=== PATIENT | male | born 1995 | race Caucasian/White ===

== ENCOUNTER 2019-05-01 03:54 | Emergency (ER) | payer OTHER ==
--- NOTE | 2019-05-01 03:58 | ED Physician Documentation ---
History of Present Illness - Stated complaint Stated Complaint: DIFFICULTY BREATHING - History obtained from History obtained from: Patient (Patient is a 23-year-old male with a history of asthma who ran out of inhaler noted he started having some mild wheezing tonight after smoking marijuana so he presents to the ER.He denies any fevers, headache, neck pain.Denies any rashes denies chest pain denies any history of pulmonary embolism or DVT.) Review of Systems Constitutional: reports: Reviewed and negative Eyes: reports: Reviewed and negative Ears: reports: Reviewed and negative Nose: reports: Reviewed and negative Throat: reports: Reviewed and negative Cardiac: reports: Reviewed and negative Respiratory: reports: Wheezing GI: reports: Reviewed and negative : reports: Reviewed and negative Skin: reports: Reviewed and negative Musculoskeletal: reports: Reviewed and negative Neurologic: reports: Reviewed and negative Psychiatric: reports: Reviewed and negative Endocrine: reports: Reviewed and negative Immunocompromised: reports: Reviewed and negative PD PAST MEDICAL HISTORY - Present Medications Home Medications: Ambulatory Orders Medication Instructions Recorded Confirmed Albuterol Sulfate [Albuterol 18 gm IH Q6HR PRN #1 hfa.aer.ad 05/01/19 Sulfate Hfa] predniSONE [Prednisone] 50 mg PO DAILY 5 Days #5 tablet 05/01/19 - Allergies Allergies/Adverse Reactions: Allergies Allergy/AdvReac Type Severity Reaction Status Date / Time No Known Drug Allergies Allergy Verified 05/01/19 04:02 PD ED PE NORMAL - Vitals Vital signs reviewed: Yes - General General: Alert and oriented X 3, No acute distress, Well developed/nourished - HEENT HEENT: Atraumatic, PERRL, Moist mucous membranes, Pharynx benign - Neck Neck: Supple, no meningeal sign, No JVD - Cardiac Cardiac: RRR, No murmur, Strong equal pulses - Respiratory Respiratory: No respiratory distress, Other (Mild diffuse intermittent wheezing.No use of accessory muscles, no respiratory distress.) - Abdomen Abdomen: Normal bowel sounds, Soft, Non tender, Non distended, No organomegaly - Derm Derm: Warm and dry - Extremities Extremities: No deformity - Neuro Neuro: Alert and oriented X 3 - Psych Psych: Normal mood, Normal affect Results - Vitals Vitals: Vital Signs - 24 hr 05/01/19 05/01/19 03:55 04:28 Temperature 36.3 C L Heart Rate 66 50 L Respiratory 16 18 Rate Blood Pressure 109/66 O2 Saturation 95 Oxygen O2 Source Room air PD MEDICAL DECISION MAKING - ED course Complexity details: re-evaluated patient (05:04, Improved after breathing treatment updated on results of chest x-ray will discharge home with a prescription for steroids and an inhaler.), considered differential (Reactive airway disease, pneumonia, bronchitis, pneumothorax, PERC 0) Departure - Departure Disposition: 01 Home, Self Care Clinical Impression: Asthma Qualifiers: Asthma severity: unspecified severity Asthma persistence: unspecified Asthma complication type: unspecified Qualified Code(s): J45.909 - Unspecified asthma, uncomplicated Condition: Stable Instructions: ALBUTEROL Oral Inhaler, ED Reactive Airway Disease Follow-Up: your, doctor [Other] - Tomorrow Prescriptions: Albuterol Sulfate [Albuterol Sulfate Hfa] 18 gm IH Q6HR PRN #1 hfa.[email or web address] PRN Reason: Wheezing predniSONE [Prednisone] 50 mg PO DAILY 5 Days #5 tablet
[2019-05-01] MEDS ORDERED: IPRATROPIUM/ALBUTEROL 3 ML NEB INH STA (04:13)
[2019-05-01] MEDS ORDERED: predniSONE 20 MG TABLET PO STA (04:13)
--- NOTE | 2019-05-01 05:01 | XRAY Report ---
Reason: sob Procedure Date: 05/01/2019 Accession Number: [id number] / [id number] Procedure: XR - Chest 2 View X-Ray CPT Code: 41817 Final Report FULL RESULT: EXAM: CHEST RADIOGRAPHY EXAM DATE: 05/01/2019 04:50 AM CLINICAL HISTORY: Sob. COMPARISON: None. TECHNIQUE: 2 views. FINDINGS: Lungs/Pleura: Central peribronchial and interstitial thickening. No lobar opacity, pleural effusion, or pneumothorax. Mediastinum: Normal heart and mediastinum. Other: None. IMPRESSION: Pulmonary findings which may reflect bronchiolitis from infection or inflammation. No lobar pneumonia. RADIA
[2019-05-01 05:46] VITALS: BP 116/78
== END 2019-05-01 05:44 | disposition home or self-care (01) ==
LOC: ED 03:54
DX: J45.909 Unspecified asthma, uncomplicated (principal)
CPT/HCPCS: 71046; 94640; 99283; 99284; J7512

== ENCOUNTER 2019-05-15 11:04 | Emergency (ER) | payer OTHER ==
[2019-05-15 11:17] VITALS: BP 124/84
--- NOTE | 2019-05-15 11:20 | ED Physician Documentation ---
PD HPI URI - Stated complaint Stated Complaint: WELL CHECK - Chief complaint Chief Complaint: General - History obtained from History obtained from: Patient - History of Present Illness Timing - onset: Other (He states he has been feeling well. He has been home off work for the last 6 days without any illness. 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 However his employer states he needed a note saying he is well in order to go back to work.) Associated symptoms: No: Fever, Chills, Sore throat, Dry cough, NVD Contributing factors: No: Sick contact, Travel, Immunocompromised Recently seen: Not recently seen Review of Systems Constitutional: denies: Fever Nose: denies: Rhinorrhea / runny nose, Congestion Throat: denies: Sore throat Respiratory: denies: Cough GI: denies: Vomiting, Diarrhea Neurologic: denies: Generalized weakness PD PAST MEDICAL HISTORY - Past Medical History Past Medical History: Yes Respiratory: Asthma - Past Surgical History Past Surgical History: No - Present Medications Home Medications: Ambulatory Orders Medication Instructions Recorded Confirmed Albuterol Sulfate [Albuterol 18 gm IH Q6HR PRN #1 hfa.[email or web address] 05/01/19 Sulfate Hfa] predniSONE [Prednisone] 50 mg PO DAILY 5 Days #5 tablet 05/01/19 - Allergies Allergies/Adverse Reactions: Allergies Allergy/AdvReac Type Severity Reaction Status Date / Time No Known Drug Allergies Allergy Verified 05/15/19 11:17 - Social History Does the pt smoke?: No Smoking Status: Never smoker Does the pt drink ETOH?: No Does the pt have substance abuse?: No - Immunizations Immunizations are current?: Yes PD ED PE NORMAL - Vitals Vital signs reviewed: Yes - General General: Alert and oriented X 3, No acute distress, Well developed/nourished - HEENT HEENT: Moist mucous membranes, Pharynx benign - Neck Neck: Supple, no meningeal sign, No adenopathy - Cardiac Cardiac: RRR, No murmur - Respiratory Respiratory: Clear bilaterally - Derm Derm: Normal color, Warm and dry - Neuro Neuro: Alert and oriented X 3, No motor deficit, Normal speech Results - Vitals Vitals: Vital Signs - 24 hr 05/15/19 11:14 Temperature 36.0 C L Heart Rate 99 Respiratory 16 Rate Blood Pressure 124/84 H O2 Saturation 99 Oxygen O2 Source Room air PD MEDICAL DECISION MAKING - ED course Complexity details: considered differential (Patient is without illness. I gave him a copy of the CDC handout to provide to his employer stating employee your should not require work notes for return to work according to the CDC. The patient appears well at this point but I certainly am not able to vouch that he will not be ill etc.), d/w patient Departure - Departure Disposition: Home, Self Care Clinical Impression: Well adult health check Condition: Stable Record reviewed to determine appropriate education?: Yes Comments: The CDC website as listed below says that employer should not require workers to get notes for return to work but should follow the guidelines specified within the website. The patient states he is feeling well and has no clinical indications for respiratory infection at the moment. Refer to this website for the CDC guidelines stating business practices for redu cing spread of infection and in particular not requiring employees to have work notes: https://www.cdc.gov/coronavirus/2019-ncov/community/nwldlliw-rckgqjjl-mzhfbyaw.h tml
== END 2019-05-15 11:47 | disposition home or self-care (01) ==
LOC: ED 11:04
DX: Z02.89 Encounter for other administrative examinations (principal)
CPT/HCPCS: 99281

== ENCOUNTER 2019-07-10 21:53 | Emergency (ER) | payer OTHER ==
[2019-07-10 22:07] VITALS: BP 115/65
[2019-07-10] MEDS ORDERED: IPRATROPIUM/ALBUTEROL 3 ML NEB INH STA (22:56)
[2019-07-10] MEDS ORDERED: predniSONE 20 MG TABLET PO STA ×2 (22:56→23:27)
--- NOTE | 2019-07-10 23:00 | ED Physician Documentation ---
PD HPI DYSPNEA - Stated complaint Stated Complaint: SOA - Chief complaint Chief Complaint: Resp - History obtained from History obtained from: Patient - History of Present Illness Timing - onset: Enter time (15:00), Today Timing - onset during: Light activity Timing - details: Gradual onset Pain level max: 0 Pain level now: 0 Worsened by: Exertion Associated symptoms: Wheezing. No: Fever, Cough, Hemoptysis, Chest pain / discomfort, Bilateral edema, Unilateral edema Recently seen: Emergency Dept (T+R 2 months ago from this ED for similar symptoms, had resolution with MDI and prednisone. Has been seen in outpatient setting and had MDI represcribed) Review of Systems Constitutional: denies: Fever, Chills, Sweats Throat: denies: Sore throat Cardiac: reports: Reviewed and negative Respiratory: reports: Dyspnea, Wheezing. denies: Cough, Hemoptysis PD PAST MEDICAL HISTORY - Past Medical History Respiratory: Asthma - Past Surgical History Past Surgical History: No - Present Medications Home Medications: Ambulatory Orders Medication Instructions Recorded Confirmed Albuterol Sulfate [Albuterol 18 gm IH Q6HR PRN #1 hfa.[email or web address] 05/01/19 Sulfate Hfa] predniSONE [Prednisone] 50 mg PO DAILY 5 Days #5 tablet 05/01/19 predniSONE [Prednisone] 40 mg PO DAILY #8 tablet 07/10/19 - Allergies Allergies/Adverse Reactions: Allergies Allergy/AdvReac Type Severity Reaction Status Date / Time No Known Drug Allergies Allergy Verified 07/10/19 22:02 - Social History Does the pt smoke?: No Smoking Status: Never smoker Does the pt drink ETOH?: No Does the pt have substance abuse?: No - Immunizations Immunizations are current?: Yes PD ED PE NORMAL - Vitals Vital signs reviewed: Yes - General General: Alert and oriented X 3, No acute distress, Well developed/nourished - Neck Neck: Supple, no meningeal sign - Cardiac Cardiac: RRR, No murmur - Respiratory Respiratory: No respiratory distress, Clear bilaterally Results - Vitals Vitals: Vital Signs - 24 hr 07/10/19 07/10/19 22:02 23:05 Temperature 36.5 C Heart Rate 79 67 Respiratory 16 16 Rate Blood Pressure 115/65 O2 Saturation 94 Oxygen O2 Source Room air PD MEDICAL DECISION MAKING - ED course Complexity details: reviewed old records, considered differential, d/w patient ED course: patient already was finishing up duoneb by the time of my evaluation; he reports significant improvement with this and is comfortable with discharge home Departure - Departure Disposition: 01 Home, Self Care Clinical Impression: Dyspnea Condition: Good Instructions: ED Dyspnea Shortness of Breath Prescriptions: predniSONE [Prednisone] 40 mg PO DAILY #8 tablet Discharge Date/Time: 07/10/19 23:41
== END 2019-07-10 23:41 | disposition home or self-care (01) ==
LOC: ED 21:53
DX: R06.00 Dyspnea, unspecified (principal); J45.909 Unspecified asthma, uncomplicated
CPT/HCPCS: 94640; 99283; J7512

== ENCOUNTER 2020-08-30 07:00 | Outpatient (CLI) | payer OTHER ==
--- NOTE | 2020-08-31 14:18 | XRAY Report ---
PROCEDURE: Cervical Spine 2 View INDICATIONS: NECK PAIN, ACUTE TECHNIQUE: 2 views of the cervical spine were acquired. COMPARISON: None. FINDINGS: Bones: No fractures or subluxation to the C7-T1 level. No suspicious bony lesions. Soft tissues: No prevertebral soft tissue swelling. IMPRESSION: 1. No fracture or subluxation. Reviewed by: Blu Arora MD on 08/31/2020 2:16 PM PDT Approved by: Blu Arora MD on 08/31/2020 2:16 PM PDT Station ID: [id number]
== END 2020-08-30 23:59 | disposition home or self-care (01) ==
LOC: DI.N 07:00
PROVIDERS: ATTEND Family Medicine
DX: M54.2 Cervicalgia (principal)

== ENCOUNTER 2021-03-03 02:52 | Emergency (ER) | payer SELFPAY ==
[2021-03-03] MEDS ORDERED: IPRATROPIUM/ALBUTEROL 3 ML NEB INH STA (04:16)
--- NOTE | 2021-03-03 04:16 | ED Physician Documentation ---
PD HPI DYSPNEA - Stated complaint Stated Complaint: SOA - Chief complaint Chief Complaint: Resp - History obtained from History obtained from: Patient - History of Present Illness Timing - onset: Yesterday Timing - details: Gradual onset, Waxing and waning Pain level now: 0 Worsened by: Exertion Associated symptoms: Wheezing. No: Fever, Bilateral edema, Unilateral edema Similar symptoms before: Diagnosis (asthma has been suspected/provisional diagnosis) - Additional information Additional information: c/o dyspnea, wheezing, chest/breathing constriction since yesterday. He has had similar episodes in the past, has been told possible asthma but has not been specifically diagnosed (his description is that of being told on a previous ED visit about possible asthma). He has had good relief in the past with albuterol MDI but he does not have it with him. He is not COVID vaccinated. Denies fever. He has had minimal, nonproductive cough. Review of Systems Constitutional: reports: Reviewed and negative Cardiac: denies: Chest pain / pressure Respiratory: reports: Dyspnea, Cough (minimal, nonproductive), Wheezing PD PAST MEDICAL HISTORY - Past Medical History Respiratory: Asthma - Past Surgical History Past Surgical History: No - Present Medications Home Medications: Ambulatory Orders Medication Instructions Recorded Confirmed Albuterol Sulfate [Albuterol 18 gm IH Q6HR PRN #1 [email or web address] 05/01/19 Sulfate Hfa] predniSONE [Prednisone] 50 mg PO DAILY 5 Days #5 tablet 05/01/19 predniSONE [Prednisone] 40 mg PO DAILY #8 tablet 07/10/19 Albuterol Sulf [Ventolin Hfa 1 - 2 puffs INH Q4HR PRN #1 inhaler 03/03/21 Inhaler] predniSONE [Deltasone] 40 mg PO DAILY 4 Days #8 tablet 03/03/21 - Allergies Allergies/Adverse Reactions: Allergies Allergy/AdvReac Type Severity Reaction Status Date / Time No Known Drug Allergies Allergy Verified 07/10/19 22:02 - Social History Does the pt smoke?: No Smoking Status: Never smoker Does the pt drink ETOH?: No Does the pt have substance abuse?: No - Immunizations Immunizations are current?: Yes PD ED PE NORMAL - Vitals Vital signs reviewed: Yes - General General: Alert and oriented X 3, No acute distress, Well developed/nourished - Cardiac Cardiac: RRR, No murmur - Respiratory Respiratory: No respiratory distress PD ED PE EXPANDED - Respiratory Respiratory: Wheezing (diffuse expiratory wheezing with decreased breath sounds) Results - Vitals Vitals: Oxygen O2 Source Room air PD MEDICAL DECISION MAKING - ED course Complexity details: reviewed old records, re-evaluated patient, considered differential, d/w patient ED course: HPI s/o asthma exacerbation. lungs are diminished with diffuse expiratory wheezing. He is given duoneb and PO prednisone. On reexamination, he is in NAD and reports significant improvement. On reexam, he has good air movement and minimal residual end-expiratory wheezing bilaterally. Rx for albuterol MDI and prednisone transmitted to his pharmacy of choice Departure - Departure Disposition: 01 Home, Self Care Clinical Impression: Dyspnea Condition: Good Instructions: ED Reactive Airway Disease Prescriptions: Albuterol Sulf [Ventolin Hfa Inhaler] 1 - 2 puffs INH Q4HR PRN #1 inhaler PRN Reason: Shortness Of Air/Wheezing predniSONE [Deltasone] 40 mg PO DAILY 4 Days #8 tablet Comments: Prescriptions for an albuterol inhaler and prednisone have been electronically submitted to [facility] pharmacy in [place] Discharge Date/Time: 03/03/21 06:00
[2021-03-03] MEDS ORDERED: predniSONE 20 MG TABLET PO STA (04:19)
[2021-03-03 05:58] VITALS: BP 149/80
== END 2021-03-03 06:00 | disposition home or self-care (01) ==
LOC: ED 02:52
DX: R06.00 Dyspnea, unspecified (principal)
CPT/HCPCS: 94640; 94664; 99283; J7512

== ENCOUNTER 2021-11-04 10:10 | Emergency (ER) | payer OTHER ==
[2021-11-04 10:23] VITALS: BP 138/92
--- NOTE | 2021-11-04 11:48 | ED Physician Documentation ---
History of Present Illness - Stated complaint Stated Complaint: BACK PX - Chief complaint Chief Complaint: Back Pain - Additonal information Additional information: Patient is 26-year-old male presenting to the emergency department with chief complaint of back pain. Reports right-sided back pain radiating down his right leg x3 weeks. States that pain began acutely 3 weeks ago while doing some heavy lifting at work. Denies episodes of similar pain in the past. Denies any fever, history IVDA, diabetes, renal disease, saddle paresthesias, changes in bowel or bladder habit or lower extremity weakness. Reports has been using Motrin at home with minimal relief. Does state that yesterday a friend gave him a half of Robaxin which did significantly help his pain and allow him to sleep. Does not currently have a primary care doctor with whom he follows. Review of Systems Ten Systems: 10 systems reviewed and negative Constitutional: denies: Fever Eyes: denies: Loss of vision Ears: denies: Loss of hearing Nose: denies: Rhinorrhea / runny nose Throat: denies: Dental pain / toothache Cardiac: denies: Chest pain / pressure Respiratory: denies: Dyspnea GI: denies: Abdominal Pain Musculoskeletal: reports: Back pain PD PAST MEDICAL HISTORY - Past Medical History Respiratory: Asthma - Past Surgical History Past Surgical History: No - Present Medications Home Medications: Ambulatory Orders Medication Instructions Recorded Confirmed Albuterol Sulfate [Albuterol 18 gm IH Q6HR PRN #1 hfa.aer.ad 05/01/19 Sulfate Hfa] predniSONE [Prednisone] 50 mg PO DAILY 5 Days #5 tablet 05/01/19 predniSONE [Prednisone] 40 mg PO DAILY #8 tablet 07/10/19 Albuterol Sulf [Ventolin Hfa 1 - 2 puffs INH Q4HR PRN #1 inhaler 03/03/21 Inhaler] predniSONE [Deltasone] 40 mg PO DAILY 4 Days #8 tablet 03/03/21 Acetaminophen [Pain Relief] 650 mg PO Q8HR #30 tab 11/04/21 Ibuprofen [Motrin] 1 tablet PO Q8H PRN #30 tablet 11/04/21 Lidocaine Patch 5% [Lidoderm Patch] 1 each TOP DAILY #20 patch 11/04/21 methocarbamoL [Robaxin] 500 mg PO Q6H #20 tablet 11/04/21 oxyCODONE [Roxicodone] 5 mg PO ONCE #10 tablet 11/04/21 - Allergies Allergies/Adverse Reactions: Allergies Allergy/AdvReac Type Severity Reaction Status Date / Time No Known Drug Allergies Allergy Verified 11/04/21 10:23 - Social History Does the pt smoke?: No Smoking Status: Never smoker Does the pt drink ETOH?: No Does the pt have substance abuse?: No - Immunizations Immunizations are current?: Yes - POLST Patient has POLST: No PD ED PE NORMAL - General General: Alert and oriented X 3, No acute distress, Well developed/nourished - HEENT HEENT: Atraumatic - Respiratory Respiratory: No respiratory distress - Back Back: No CVA TTP, No spinal TTP, Other (Right low paraspinal muscle tenderness to palpation.) Results - Vitals Vitals: Vital Signs - 24 hr 11/04/21 10:20 Temperature 36.3 C L Heart Rate 80 Respiratory 16 Rate Blood Pressure 138/92 H O2 Saturation 97 Oxygen O2 Source Room air PD MEDICAL DECISION MAKING - ED course Complexity details: d/w patient ED course: Patient is otherwise healthy 26-year-old male presenting to the emergency department with 3-week history of right low back pain with symptoms consistent with sciatica on the right. Afebrile, hemodynamically stable. No red flags elicited in history. Normal reflexes, normal sensation in the right lower extremity. No tenderness to palpation of the spine itself but some right low paraspinal muscle tenderness to palpation. Discussed nature of back pain with patient at length. I discussed modalities for pain management at home including the use of regular alternating acetaminophen, ibuprofen, Lidoderm patches. Additionally discussed adjuvant medications including Robaxin and Roxicodone for use as needed. Did discuss in detail the importance of follow-up with primary care. Additionally we discussed red flags would be indicative of spinal cord compression or infection which Should elicit prompt return to the emergency department. Patient verbalized understanding of these things. Will discharge at this time with prescriptionsSymptomatic management as well as encouragement for light activity at home and follow-up with primary care. Otherwise clear return precautions given prior to discharge. Departure - Departure Disposition: 01 Home, Self Care Clinical Impression: Back pain, Sciatica Instructions: NARCOTIC, Oral, IBUPROFEN (Adult), ED Back Care Tips, ED Exercises Lumbar Muscles, ED Sciatica Follow-Up: Coy Drummond MD [Physician No Access] - Prescriptions: Acetaminophen [Pain Relief] 650 mg PO Q8HR #30 tab Lidocaine Patch 5% [Lidoderm Patch] 1 each TOP DAILY #20 patch Ibuprofen [Motrin] 1 tablet PO Q8H PRN #30 tablet PRN Reason: PAIN &/OR FEVER methocarbamoL [Robaxin] 500 mg PO Q6H #20 tablet oxyCODONE [Roxicodone] 5 mg PO ONCE #10 tablet
== END 2021-11-04 11:59 | disposition home or self-care (01) ==
LOC: ED 10:10
DX: M54.40 Lumbago with sciatica, unspecified side (principal)
CPT/HCPCS: 99283; 99284

== ENCOUNTER 2023-01-05 10:52 | Emergency (ER) | payer SELFPAY ==
[2023-01-05] MEDS ORDERED: IPRATROPIUM/ALBUTEROL 3 ML NEB INH STA (10:59)
[2023-01-05 11:13] VITALS: BP 123/90; O2SAT 94
--- NOTE | 2023-01-05 11:27 | XRAY Report ---
PROCEDURE: Chest 1 View X-Ray INDICATIONS: SOA TECHNIQUE: One view of the chest was acquired. COMPARISON: None. FINDINGS: Surgical changes and devices: None. Lungs and pleura: No pleural effusions or pneumothorax. Lungs are clear. Mediastinum: Mediastinal contours appear normal. Heart size is normal. Bones and chest wall: No suspicious bony lesions. Overlying soft tissues appear unremarkable. IMPRESSION: No acute cardiopulmonary process. Reviewed by: Rolando Delgado on 01/05/2023 11:26 AM [facility] Approved by: Rolando Delgado on 01/05/2023 11:26 AM [facility] Station ID: [id number]
--- NOTE | 2023-01-05 11:38 | ED Physician Documentation ---
PD HPI URI - Stated complaint Stated Complaint: SOA - Chief complaint Chief Complaint: Resp - History obtained from History obtained from: Patient - History of Present Illness Timing - onset: How many weeks ago (3) Timing duration: Weeks (3) Timing details: Gradual onset, Still present Associated symptoms: Nasal congestion, Productive cough, Dyspnea Improves by: Rest, MDI/nebulizer Worsened by: Activity Similar symptoms before: Diagnosis (asthma) Recently seen: Not recently seen - Additional information Additional information: Adalid Kemp is a 27-year-old male with a history of persistent asthma who has had a worsening of his asthma over the last 3 weeks. He is developed a productive cough and he does not have an inhaler. He last remembers being on a course of steroid over a year ago. His best status has been to be using his inhaler about twice per day. He does not have periods of time where he does not use his inhaler at all. He is out of his inhaler. He has not sought treatment for his asthma specifically. He does not have a primary care doctor. Review of Systems Constitutional: denies: Fever, Chills Eyes: denies: Decreased vision Ears: reports: Loss of hearing. denies: Ear pain Nose: reports: Rhinorrhea / runny nose, Congestion Throat: denies: Sore throat Cardiac: denies: Chest pain / pressure, Palpitations Respiratory: reports: Dyspnea, Cough, Wheezing GI: denies: Abdominal Pain, Nausea, Vomiting, Constipation, Diarrhea : denies: Dysuria, Frequency Skin: denies: Rash Musculoskeletal: denies: Neck pain, Back pain, Extremity pain Neurologic: denies: Generalized weakness, Focal weakness, Numbness PD PAST MEDICAL HISTORY - Past Medical History Past Medical History: Yes Respiratory: Asthma - Past Surgical History Past Surgical History: No - Present Medications Home Medications: Ambulatory Orders Medication Instructions Recorded Confirmed Albuterol Sulfate [Albuterol 18 gm IH Q6HR PRN #1 hfa.aer.ad 05/01/19 Sulfate Hfa] predniSONE [Prednisone] 50 mg PO DAILY 5 Days #5 tablet 05/01/19 predniSONE [Prednisone] 40 mg PO DAILY #8 tablet 07/10/19 Albuterol Sulf [Ventolin Hfa 1 - 2 puffs INH Q4HR PRN #1 inhaler 03/03/21 Inhaler] predniSONE [Deltasone] 40 mg PO DAILY 4 Days #8 tablet 03/03/21 Acetaminophen [Pain Relief] 650 mg PO Q8HR #30 tab 11/04/21 Ibuprofen [Motrin] 1 tablet PO Q8H PRN #30 tablet 11/04/21 Lidocaine Patch 5% [Lidoderm Patch] 1 each TOP DAILY #20 patch 11/04/21 Oxycodone HCl [Roxicodone] 5 mg PO Q8HR PRN #10 tablet 11/04/21 methocarbamoL [Robaxin] 500 mg PO Q6H #20 tablet 11/04/21 Albuterol Sulf [Ventolin Hfa 1 - 2 puffs INH Q4HR PRN #1 each 01/05/23 Inhaler] Amox/Clav 875/125 [Augmentin] 1 each PO Q12H #20 tablet 01/05/23 predniSONE [Deltasone] 10 mg PO ONCE #26 tablet 01/05/23 - Allergies Allergies/Adverse Reactions: Allergies Allergy/AdvReac Type Severity Reaction Status Date / Time No Known Drug Allergies Allergy Verified 01/05/23 10:59 - Social History Does the pt smoke?: No Smoking Status: Never smoker Does the pt drink ETOH?: No Does the pt have substance abuse?: No - Immunizations Immunizations are current?: Yes - POLST Patient has POLST: No PD ED PE NORMAL - Vitals Vital signs reviewed: Yes (tachy and hypertensive ) - General General: Alert and oriented X 3, Well developed/nourished, Other (tachypneia and persed lip breathing is present at rest ) - HEENT HEENT: Atraumatic, PERRL, EOMI, Other (right TM is clear the left is erythematous with distortion of the landmarks. ) - Neck Neck: Supple, no meningeal sign, No bony TTP - Cardiac Cardiac: No murmur, Other (tachy to 110) - Respiratory Respiratory: Other (tachypneic at rest with diminished breath sounds and scattered wheezes. ) - Abdomen Abdomen: Soft, Non tender - Back Back: No CVA TTP, No spinal TTP - Derm Derm: Normal color, Warm and dry, No rash - Extremities Extremities: No deformity, No edema - Neuro Neuro: Alert and oriented X 3, bowl turner 2-12 intact, No motor deficit, No sensory deficit, Normal speech Eye Opening: Spontaneous Motor: Obeys Commands Verbal: Oriented GCS Score: 15 - Psych Psych: Normal mood, Normal affect Results - Vitals Vitals: Vital Signs - 24 hr 01/05/23 01/05/23 01/05/23 10:56 11:14 12:15 Temperature 36.4 C L Heart Rate 113 H 108 H 79 Respiratory 24 20 16 Rate Blood Pressure 123/90 H O2 Saturation 94 Oxygen O2 Source Room air - Rads (name of study) chest Relevant Findings:: Prelim report reviewed (Impression: No acute cardiopulmonary process.), EMP independent interpretation of test PD Medical Decision Making - ED course Complexity details: reviewed results, re-evaluated patient, considered differential, d/w patient ED course: 27-year-old male with a history of asthma presents to the emergency department with 3 weeks of symptoms worsening and a cough productive of sputum. He has otitis on examination and has a clear chest on ancillary exam. He is given a dose of dexamethasone and a DuoNeb treatment followed by an albuterol treatment. We will place him on a course of prednisone, be certain he has an inhaler and provide a course of Augmentin. I have encouraged the patient to seek further care in follow-up for his poorly controlled asthma. Departure - Departure Disposition: Home, Self Care Clinical Impression: Asthma exacerbation Qualifiers: Asthma severity: severe Asthma persistence: persistent Qualified Code(s): J45.51 - Severe persistent asthma with (acute) exacerbation Otitis media Qualifiers: Otitis media type: suppurative Chronicity: acute Laterality: left Recurrence: non-recurrent Spontaneous tympanic membrane rupture: without spontaneous rupture Qualified Code(s): H66.002 - Acute suppurative otitis media without spontaneous rupture of ear drum, left ear Condition: Stable Instructions: ED Bronchitis Asthmatic, ED Otitis Media Acute Adult Follow-Up: [facility] [place] [Provider Group] Prescriptions: Albuterol Sulf [Ventolin Hfa Inhaler] 1 - 2 puffs INH Q4HR PRN #1 each PRN Reason: Shortness Of Air/Wheezing Amox/Clav 875/125 [Augmentin] 1 each PO Q12H #20 tablet predniSONE [Deltasone] 10 mg PO ONCE #26 tablet Comments: Rosalva, today it looks like you have an exacerbation of your asthma. It also appears your asthma is poorly controlled. I believe the worsening of your asthma is related to an infection in the left middle ear and I have E scribed some antibiotic to the [facility] [place]. I have E scribed a course of prednisone which you will not need to start until tomorrow, because of the dose we gave you of the dexamethasone here today. Start the prednisone tomorrow and finish it as prescribed. In addition I have E scribed an inhaler. As we discussed your asthma is poorly controlled and additional alternative inhalers are indicated. Follow-up at the [facility] primary care in [place] for continued management of your asthma.
[2023-01-05] MEDS ORDERED: DEXAMETHASONE 10 MG/ML VIAL PO STA (11:44)
[2023-01-05] MEDS ORDERED: CHERRY SYRUP 10 ML UDC PO ONE (11:44)
[2023-01-05] MEDS ORDERED: ALBUTEROL NEB 2.5 MG/3 ML INH STA (11:59)
== END 2023-01-05 13:37 | disposition home or self-care (01) ==
LOC: ED 10:52
DX: J45.51 Severe persistent asthma with (acute) exacerbation (principal); H66.002 Acute suppurative otitis media without spontaneous rupture of ear drum, left ear
CPT/HCPCS: 71045; 94640; 94664; 99284; A9270